=== PATIENT | male | born 1965 | race Caucasian/White ===

== ENCOUNTER 2021-12-23 18:11 | Inpatient (IN) | payer OTHER ==
[2021-12-23] MEDS ORDERED: DIPHTH,PERTUSS(ACELL),TET 0.5 ML DISP.SYRIN IM ONE ×2 (20:11→20:47)
[2021-12-23] MEDS ORDERED: VANCOMYCIN 1 GM in D5W (PRE-DOCKED) 1,000 MG/250 ML IVPB ONE (20:11)
[2021-12-23] MEDS ORDERED: PIPERACILLIN/TAZOB 4.5 GM 4.5 GM in DEXTROSE 5%-WATER 100 ML IVPB ONE (20:13)
[2021-12-23] MEDS ORDERED: PIPERACILLIN/TAZOB 4.5 GM 4.5 GM/100 ML BAG IVPB ONE (20:46)
[2021-12-23] MEDS ORDERED: VANCOMYCIN 1 GRAM (PRE-DOCKED) 1,000 MG/250 ML BAG IVPB ONE (20:46)
[2021-12-23 20:54] LABS: BASO % 0.5 % (0-2.0); EOS % 0.8 % (0-4.5); HEMOGLOBIN 10.9 GM/dL (11.7-16.9); LYMPH % 9.7 % (8-40); MCH 34.2 pg (25.7-33.7); MCHC 35.2 g/dl (32.0-35.9); MEAN CELL VOLUME 97.3 fl (80-96); MEAN PLT VOLUME 8.2 fl (7.5-11.1); PLATELET COUNT 193 10^3/uL (134-434); RBC 3.18 M/mm3 (4.00-5.60); RDW 13.6 % (11.9-15.9); WHITE BLOOD COUNT 8.1 K/mm3 (4.0-10.0)
[2021-12-23 21:08] LABS: ACTIVATED PTT 31.6 SECONDS (25.2-36.5); INR 1.07 (0.83-1.09); PROTHROMBIN TIME (PATIENT) 12.3 SEC (9.7-13.0)
[2021-12-23 21:17] LABS: CHLORIDE 92 mmol/L (98-107); SODIUM 130 mmol/L (136-145)
[2021-12-23 21:19] LABS: ALBUMIN 3.5 g/dl (3.4-5.0); CALCIUM 8.9 mg/dL (8.5-10.1)
[2021-12-23 21:20] LABS: ANION GAP 14 MMOL/L (8-16); BLOOD UREA NITROGEN 16.4 mg/dL (7-18); CO2 25 mmol/L (21-32); MAGNESIUM 2.8 mg/dL (1.8-2.4)
[2021-12-23] MEDS ORDERED: SODIUM CHLORIDE 0.9% 500 ML INFUS.BAG IV ONE (21:22)
[2021-12-23 21:23] LABS: CREATININE 1.1 mg/dL (0.55-1.3); SGOT/AST 15 U/L (15-37); SGPT/ALT 16 U/L (13-61)
[2021-12-23 21:24] LABS: BILIRUBIN,TOTAL 0.7 mg/dL (0.2-1); TOT PROT 7.3 g/dl (6.4-8.2)
[2021-12-23 21:26] LABS: ALK PHOS 141 U/L (45-117)
[2021-12-23 21:33] LABS: GLUCOSE,RANDOM 472 mg/dL (74-106)
[2021-12-23] MEDS ORDERED: INSULIN (NOVOLOG) ASPART 100 UNITS/ML 10ML VIAL SQ ONE (21:56)
[2021-12-24 03:53] VITALS: BMI 22.1
[2021-12-24 08:39] LABS: BASO % 0.4 % (0-2.0); EOS % 1.6 % (0-4.5); HEMATOCRIT 34.3 % (35.4-49); HEMOGLOBIN 11.8 GM/dL (11.7-16.9); LYMPH % 7.6 % (8-40); MCH 33.7 pg (25.7-33.7); MCHC 34.5 g/dl (32.0-35.9); MEAN CELL VOLUME 97.6 fl (80-96); MEAN PLT VOLUME 8.4 fl (7.5-11.1); MONO % 9.4 % (3.8-10.2); PLATELET COUNT 207 10^3/uL (134-434); RBC 3.51 M/mm3 (4.00-5.60); RDW 13.3 % (11.9-15.9); WHITE BLOOD COUNT 7.5 K/mm3 (4.0-10.0)
[2021-12-24 08:54] LABS: ALBUMIN 3.2 g/dl (3.4-5.0); CALCIUM 9.1 mg/dL (8.5-10.1)
[2021-12-24 08:55] LABS: BLOOD UREA NITROGEN 14.7 mg/dL (7-18)
[2021-12-24 08:57] LABS: CREATININE 0.8 mg/dL (0.55-1.3)
[2021-12-24 08:59] LABS: BILIRUBIN,TOTAL 0.7 mg/dL (0.2-1); TOT PROT 6.6 g/dl (6.4-8.2)
[2021-12-24] MEDS ORDERED: PIPERACILLIN/TAZOBACTAM 3.375 GM VIAL IVPB ONE (09:26)
[2021-12-24] MEDS ORDERED: DEXTROSE 5%-WATER - 50 ML IVPB ONE ×2 (09:26→12:37)
[2021-12-24] MEDS: ENOXAPARIN NA (PORCINE) 40 MG/0.4 ML DISP.SYRIN SQ SCH (09:31)
[2021-12-24] MEDS ORDERED: PIPERACILLIN/TAZOB 3.375 GM 3.375 GM in DEXTROSE 5%-WATER - 50 ML IVPB SCH (10:00)
[2021-12-24] MEDS ORDERED: VANCOMYCIN/WATER FOR INJ (PEG) 1 GM/200 ML BAG IVPB SCH ×2 (10:00→22:00)
[2021-12-24] MEDS: INSULIN SLIDING SCALE (NOVOLOG) 1 VIAL SQ SCH ×3 (12:12→21:08)
[2021-12-24] MEDS ORDERED: cefTRIAXone SODIUM 1 GM VIAL ONE (12:37)
[2021-12-24] MEDS: CEFTRIAXONE 1 GM in DEXTROSE 5%-WATER - 50 ML IVPB SCH (12:39)
[2021-12-24] MEDS ORDERED: SODIUM CHLORIDE 1,000 ML IV SCH (15:15)
[2021-12-25] MEDS: INSULIN SLIDING SCALE (NOVOLOG) 1 VIAL SQ SCH ×4 (06:24→21:17)
[2021-12-25] MEDS: INSULIN (LEVEMIR) 100 UNITS/ML UNITS SQ SCH ×2 (06:25→21:16)
[2021-12-25] MEDS ORDERED: INSULIN (NOVOLOG) ASPART 100 UNITS/ML 10ML VIAL ONE ×2 (06:42→20:46)
[2021-12-25] MEDS ORDERED: cefTRIAXone SODIUM 1 GM VIAL ONE (09:04)
[2021-12-25] MEDS ORDERED: DEXTROSE 5%-WATER - 50 ML IVPB ONE (09:04)
[2021-12-25] MEDS: ENOXAPARIN NA (PORCINE) 40 MG/0.4 ML DISP.SYRIN SQ SCH (09:23)
[2021-12-25] MEDS: CEFTRIAXONE 1 GM in DEXTROSE 5%-WATER - 50 ML IVPB SCH (09:23)
[2021-12-25 09:40] LABS: BASO % 0.8 % (0-2.0); EOS % 1.7 % (0-4.5); HEMATOCRIT 30.9 % (35.4-49); HEMOGLOBIN 10.8 GM/dL (11.7-16.9); LYMPH % 9.6 % (8-40); MCH 33.9 pg (25.7-33.7); MEAN CELL VOLUME 96.8 fl (80-96); MEAN PLT VOLUME 7.8 fl (7.5-11.1); MONO % 11.3 % (3.8-10.2); NEUT % 76.6 % (42.8-82.8); PLATELET COUNT 172 10^3/uL (134-434); RDW 13.6 % (11.9-15.9); WHITE BLOOD COUNT 6.1 K/mm3 (4.0-10.0)
[2021-12-25 10:02] LABS: CALCIUM 8.2 mg/dL (8.5-10.1)
[2021-12-25 10:03] LABS: ALBUMIN 2.6 g/dl (3.4-5.0); BLOOD UREA NITROGEN 13.7 mg/dL (7-18)
[2021-12-25 10:06] LABS: CREATININE 0.7 mg/dL (0.55-1.3)
[2021-12-25 10:08] LABS: BILIRUBIN,TOTAL 0.5 mg/dL (0.2-1); TOT PROT 5.2 g/dl (6.4-8.2)
[2021-12-25] MEDS: MUPIROCIN 2% TOPICAL OINTMENT 22 GM TUBE TP SCH ×2 (10:56→21:16)
[2021-12-25 19:08] LABS: URINE APPEARANCE CLEAR; URINE BILIRUBIN NEGATIVE (NEGATIVE); URINE COLOR YELLOW; URINE GLUCOSE (UA) 2+ (NEGATIVE); URINE KETONE TRACE (NEGATIVE); URINE LEUK ESTERASE NEGATIVE (NEGATIVE); URINE NITRITE NEGATIVE (NEGATIVE); URINE PROTEIN TRACE (NEGATIVE)
[2021-12-26] MEDS: INSULIN (LEVEMIR) 100 UNITS/ML UNITS SQ SCH ×2 (06:35→21:27)
[2021-12-26] MEDS: INSULIN SLIDING SCALE (NOVOLOG) 1 VIAL SQ SCH ×4 (06:36→21:28)
[2021-12-26] MEDS ORDERED: INSULIN (NOVOLOG) ASPART 100 UNITS/ML 10ML VIAL ONE ×3 (06:37→21:25)
[2021-12-26] MEDS ORDERED: cefTRIAXone SODIUM 1 GM VIAL ONE (09:18)
[2021-12-26] MEDS ORDERED: DEXTROSE 5%-WATER - 50 ML IVPB ONE (09:18)
[2021-12-26] MEDS: ENOXAPARIN NA (PORCINE) 40 MG/0.4 ML DISP.SYRIN SQ SCH (10:10)
[2021-12-26] MEDS: CEFTRIAXONE 1 GM in DEXTROSE 5%-WATER - 50 ML IVPB SCH (10:10)
[2021-12-26] MEDS: MUPIROCIN 2% TOPICAL OINTMENT 22 GM TUBE TP SCH ×2 (10:11→21:27)
[2021-12-26] MEDS: LISINOPRIL 5 MG TABLET PO SCH (15:12)
[2021-12-27] MEDS: INSULIN (LEVEMIR) 100 UNITS/ML UNITS SQ SCH (07:15)
[2021-12-27] MEDS: INSULIN SLIDING SCALE (NOVOLOG) 1 VIAL SQ SCH ×2 (07:16→11:20)
[2021-12-27 09:15] LABS: CALCIUM 9.1 mg/dL (8.5-10.1)
[2021-12-27 09:16] LABS: BLOOD UREA NITROGEN 15.8 mg/dL (7-18)
[2021-12-27 09:18] LABS: CREATININE 0.7 mg/dL (0.55-1.3)
[2021-12-27 09:20] LABS: BILIRUBIN,TOTAL 0.3 mg/dL (0.2-1); TOT PROT 6.2 g/dl (6.4-8.2)
[2021-12-27 09:27] LABS: ALBUMIN 3.2 g/dl (3.4-5.0)
[2021-12-27] MEDS ORDERED: DEXTROSE 5%-WATER - 50 ML IVPB ONE (09:56)
[2021-12-27] MEDS ORDERED: cefTRIAXone SODIUM 1 GM VIAL ONE (09:56)
[2021-12-27] MEDS: ENOXAPARIN NA (PORCINE) 40 MG/0.4 ML DISP.SYRIN SQ SCH (09:59)
[2021-12-27] MEDS: CEFTRIAXONE 1 GM in DEXTROSE 5%-WATER - 50 ML IVPB SCH (09:59)
[2021-12-27] MEDS: MUPIROCIN 2% TOPICAL OINTMENT 22 GM TUBE TP SCH (09:59)
[2021-12-27] MEDS: LISINOPRIL 5 MG TABLET PO SCH (09:59)
[2021-12-27] MEDS ORDERED: INSULIN (NOVOLOG) ASPART 100 UNITS/ML 10ML VIAL ONE (10:58)
[2021-12-27 14:19] VITALS: BP 150/90; PULSE 79; TEMP 98.6
[2021-12-27] MEDS ORDERED: AMOX TR/POT CLAV 500MG/125MG TABLETS (FP) PO SCH (17:30)
== END 2021-12-27 16:51 | disposition home or self-care (01) | DRG 383 ==
LOC: JER 18:11 → JERBED 21:32 → J6S 12-24 03:19
PROVIDERS: ADMIT Internal Medicine; ATTEND Internal Medicine
DX: L03.011 Cellulitis of right finger (principal); E87.5 Hyperkalemia; E11.65 Type 2 diabetes mellitus with hyperglycemia; E86.0 Dehydration; Z79.84 Long term (current) use of oral hypoglycemic drugs
CPT/HCPCS: 36415; 73130-TC-RT-FY; 80053; 81003; 82570; 82962; 83036; 83735; 84156; 85025; 85610; 85730; 87040; 90715; 93005; 93010; 99285-25; C9803-CS; U0003; U0005

== ENCOUNTER 2022-01-18 15:06 | Inpatient (IN) | payer OTHER ==
[2022-01-18] MEDS ORDERED: PIPERACILLIN/TAZOB 4.5 GM 4.5 GM in DEXTROSE 5%-WATER 100 ML IVPB ONE (20:14)
[2022-01-18] MEDS ORDERED: ACETAMINOPHEN 1000 MG/100 ML BAG IVPB ONE (20:14)
[2022-01-18] MEDS ORDERED: VANCOMYCIN/WATER 1,250 MG/250 ML BAG IVPB ONE (20:16)
[2022-01-18] MEDS ORDERED: VANCOMYCIN/WATER BAGS 1,250 MG/250 ML BAG IVPB ONE (20:42)
[2022-01-18] MEDS ORDERED: ACETAMINOPHEN INJECTION 100 ML IVPB ONE (20:42)
[2022-01-18] MEDS ORDERED: PIPERACILLIN/TAZOB 4.5 GM 4.5 GM/100 ML BAG IVPB ONE (20:42)
[2022-01-18 21:20] LABS: BASO % 1.3 % (0-2.0); HEMATOCRIT 30.5 % (35.4-49); HEMOGLOBIN 10.7 GM/dL (11.7-16.9); LYMPH % 21.4 % (8-40); MCH 33.2 pg (25.7-33.7); MCHC 35.1 g/dl (32.0-35.9); MEAN CELL VOLUME 94.5 fl (80-96); MEAN PLT VOLUME 8.9 fl (7.5-11.1); MONO % 11.5 % (3.8-10.2); NEUT % 61.8 % (42.8-82.8); PLATELET COUNT 150 10^3/uL (134-434); RBC 3.23 M/mm3 (4.00-5.60); RDW 12.9 % (11.9-15.9); WHITE BLOOD COUNT 3.4 K/mm3 (4.0-10.0)
[2022-01-18 21:48] LABS: ALBUMIN 3.5 g/dl (3.4-5.0); BLOOD UREA NITROGEN 15.5 mg/dL (7-18); CALCIUM 8.9 mg/dL (8.5-10.1)
[2022-01-18 21:51] LABS: CREATININE 0.8 mg/dL (0.55-1.3)
[2022-01-18 21:53] LABS: BILIRUBIN,TOTAL 0.4 mg/dL (0.2-1); TOT PROT 6.6 g/dl (6.4-8.2)
[2022-01-18 21:58] LABS: INR 1.03 (0.83-1.09); PROTHROMBIN TIME (PATIENT) 11.8 SEC (9.7-13.0)
[2022-01-18 22:00] LABS: ACTIVATED PTT 28.5 SECONDS (25.2-36.5)
[2022-01-18] MEDS ORDERED: LACTATED RINGERS SOLUTION 1000 ML INFUS.BAG IV ONE (22:03)
[2022-01-18] MEDS ORDERED: INSULIN REGULAR HUMAN 100 UNITS/ML *VIAL SQ ONE (22:03)
[2022-01-19] MEDS ORDERED: PIPERACILLIN/TAZOBACTAM 3.375 GM VIAL IVPB ONE ×3 (02:12→09:32)
[2022-01-19] MEDS ORDERED: DEXTROSE 5%-WATER - 50 ML IVPB ONE ×2 (02:12→09:32)
[2022-01-19] MEDS: PIPERACILLIN/TAZOB 3.375 GM 3.375 GM in DEXTROSE 5%-WATER - 50 ML IVPB SCH ×3 (02:30→21:17)
[2022-01-19 04:54] VITALS: BMI 23.9
[2022-01-19] MEDS: INSULIN SLIDING SCALE (NOVOLOG) 1 VIAL SQ SCH ×4 (06:06→21:41)
[2022-01-19] MEDS: ENOXAPARIN NA (PORCINE) 40 MG/0.4 ML DISP.SYRIN SQ SCH (09:38)
[2022-01-19] MEDS ORDERED: VANCOMYCIN 1 GM in D5W (PRE-DOCKED) 1,000 MG/250 ML IVPB SCH (10:00)
[2022-01-19] MEDS: VANCOMYCIN/WATER FOR INJ (PEG) 1,000 MG/200 ML BAG IVPB SCH ×2 (10:24→21:13)
[2022-01-19] MEDS ORDERED: PIPERACILLIN/TAZOBACTAM 4.5 GM VIAL IVPB ONE (16:06)
[2022-01-19] MEDS ORDERED: DEXTROSE 5%-WATER 100 ML IVPB ONE (16:07)
[2022-01-19] MEDS: PIPERACILLIN/TAZOB 4.5 GM 4.5 GM in DEXTROSE 5%-WATER 100 ML IVPB SCH (17:08)
[2022-01-20] MEDS ORDERED: PIPERACILLIN/TAZOBACTAM 4.5 GM VIAL IVPB ONE ×3 (01:01→17:26)
[2022-01-20] MEDS ORDERED: DEXTROSE 5%-WATER 100 ML IVPB ONE ×3 (01:01→17:26)
[2022-01-20] MEDS: PIPERACILLIN/TAZOB 4.5 GM 4.5 GM in DEXTROSE 5%-WATER 100 ML IVPB SCH ×3 (02:30→17:43)
[2022-01-20] MEDS: INSULIN SLIDING SCALE (NOVOLOG) 1 VIAL SQ SCH ×4 (06:03→21:50)
[2022-01-20 08:32] LABS: BASO % 1.6 % (0-2.0); EOS % 6.8 % (0-4.5); HEMATOCRIT 33.5 % (35.4-49); HEMOGLOBIN 11.5 GM/dL (11.7-16.9); LYMPH % 29.8 % (8-40); MCH 33.1 pg (25.7-33.7); MCHC 34.5 g/dl (32.0-35.9); MEAN PLT VOLUME 8.5 fl (7.5-11.1); MONO % 11.9 % (3.8-10.2); NEUT % 49.9 % (42.8-82.8); PLATELET COUNT 145 10^3/uL (134-434); RBC 3.48 M/mm3 (4.00-5.60); WHITE BLOOD COUNT 2.9 K/mm3 (4.0-10.0)
[2022-01-20 08:56] LABS: BLOOD UREA NITROGEN 10.3 mg/dL (7-18); CALCIUM 8.7 mg/dL (8.5-10.1); CREATININE 0.8 mg/dL (0.55-1.3)
[2022-01-20 08:58] LABS: BILIRUBIN,TOTAL 0.4 mg/dL (0.2-1); TOT PROT 6.2 g/dl (6.4-8.2)
[2022-01-20] MEDS: LISINOPRIL 5 MG TABLET PO SCH (10:04)
[2022-01-20] MEDS: ENOXAPARIN NA (PORCINE) 40 MG/0.4 ML DISP.SYRIN SQ SCH (10:04)
[2022-01-20] MEDS ORDERED: INSULIN SLIDING SCALE (NOVOLOG) 1 VIAL SQ SCH (22:32)
[2022-01-21] MEDS ORDERED: PIPERACILLIN/TAZOBACTAM 4.5 GM VIAL IVPB ONE ×3 (00:51→17:02)
[2022-01-21] MEDS ORDERED: DEXTROSE 5%-WATER 100 ML IVPB ONE ×3 (00:52→17:02)
[2022-01-21] MEDS: PIPERACILLIN/TAZOB 4.5 GM 4.5 GM in DEXTROSE 5%-WATER 100 ML IVPB SCH ×3 (01:22→17:04)
[2022-01-21] MEDS ORDERED: INSULIN (LEVEMIR) 100 UNITS/ML UNITS SQ SCH (10:00)
[2022-01-21] MEDS: LISINOPRIL 5 MG TABLET PO SCH (10:07)
[2022-01-21] MEDS: ENOXAPARIN NA (PORCINE) 40 MG/0.4 ML DISP.SYRIN SQ SCH (10:08)
[2022-01-21] MEDS ORDERED: INSULIN (LEVEMIR) 100 UNITS/ML UNITS SQ ONE (11:00)
[2022-01-21] MEDS: INSULIN SLIDING SCALE (NOVOLOG) 1 VIAL SQ SCH ×3 (11:16→21:52)
[2022-01-21] MEDS: GABAPENTIN 300 MG CAPSULE PO SCH ×2 (14:11→21:45)
[2022-01-21] MEDS: DOXYCYCLINE HYCLATE 100 MG CAPSULE PO SCH (18:12)
[2022-01-21] MEDS: INSULIN (LEVEMIR) 100 UNITS/ML UNITS SQ SCH (21:45)
[2022-01-22] MEDS: GABAPENTIN 300 MG CAPSULE PO SCH ×3 (05:35→22:16)
[2022-01-22] MEDS: INSULIN (LEVEMIR) 100 UNITS/ML UNITS SQ SCH ×2 (06:13→22:16)
[2022-01-22] MEDS: INSULIN SLIDING SCALE (NOVOLOG) 1 VIAL SQ SCH ×4 (06:13→22:16)
[2022-01-22] MEDS: ENOXAPARIN NA (PORCINE) 40 MG/0.4 ML DISP.SYRIN SQ SCH (10:05)
[2022-01-22] MEDS: LISINOPRIL 5 MG TABLET PO SCH (10:07)
[2022-01-22] MEDS: DOXYCYCLINE HYCLATE 100 MG CAPSULE PO SCH (10:07)
[2022-01-23] MEDS: INSULIN (LEVEMIR) 100 UNITS/ML UNITS SQ SCH (06:22)
[2022-01-23] MEDS: GABAPENTIN 300 MG CAPSULE PO SCH ×2 (06:22→13:08)
[2022-01-23] MEDS: INSULIN SLIDING SCALE (NOVOLOG) 1 VIAL SQ SCH ×2 (06:23→11:12)
[2022-01-23] MEDS ORDERED: PIPERACILLIN/TAZOB 4.5 GM 4.5 GM in DEXTROSE 5%-WATER 100 ML IVPB SCH (10:00)
[2022-01-23] MEDS ORDERED: PIPERACILLIN/TAZOBACTAM 4.5 GM VIAL IVPB ONE (11:08)
[2022-01-23] MEDS ORDERED: DEXTROSE 5%-WATER 100 ML IVPB ONE (11:08)
[2022-01-23] MEDS: LISINOPRIL 5 MG TABLET PO SCH (11:09)
[2022-01-23] MEDS: ENOXAPARIN NA (PORCINE) 40 MG/0.4 ML DISP.SYRIN SQ SCH (11:09)
[2022-01-23 11:49] VITALS: TEMP 98
[2022-01-23 14:59] VITALS: BP 141/79; PULSE 76
== END 2022-01-23 16:33 | disposition home or self-care (01) | DRG 344 ==
LOC: JER 15:06 → JERBED 20:33 → J5S 01-19 00:35
PROVIDERS: ADMIT Internal Medicine; ATTEND Internal Medicine
DX: E11.69 Type 2 diabetes mellitus with other specified complication (principal); L03.011 Cellulitis of right finger; M86.8X7 Other osteomyelitis, ankle and foot; E11.52 Type 2 diabetes mellitus with diabetic peripheral angiopathy with gangrene; I10 Essential (primary) hypertension; E87.5 Hyperkalemia; E11.65 Type 2 diabetes mellitus with hyperglycemia; E87.1 Hypo-osmolality and hyponatremia; R80.9 Proteinuria, unspecified; I96 Gangrene, not elsewhere classified
CPT/HCPCS: 36415; 73140-TC-RT-FY; 80053; 81003; 82962; 83036; 85025; 85610; 85651; 85730; 86140; 86850; 86900; 86901; 87040; 93005; 93010; 99285-25; C9803-CS; U0003; U0005

== ENCOUNTER 2022-11-16 18:43 | Emergency (ER) | payer OTHER ==
[2022-11-16 18:52] VITALS: BMI 22.6
[2022-11-16 20:41] LABS: URINE APPEARANCE CLEAR; URINE BILIRUBIN NEGATIVE (NEGATIVE); URINE COLOR YELLOW; URINE GLUCOSE (UA) 3+ (NEGATIVE); URINE KETONE TRACE (NEGATIVE); URINE LEUK ESTERASE 1+ (NEGATIVE); URINE NITRITE NEGATIVE (NEGATIVE); URINE PROTEIN 1+ (NEGATIVE)
[2022-11-16 20:58] LABS: VENOUS BASE EXCESS -2.8 mmol/L (-2-2); VENOUS PCO2 40.8 mmHg (38-52); VENOUS PH 7.358 (7.310-7.410)
[2022-11-16 21:00] LABS: BASO % 1.5 % (0-2.0); EOS % 6.1 % (0-4.5); HEMATOCRIT 36.9 % (35.4-49); LYMPH % 10.1 % (8-40); MCH 32.4 pg (25.7-33.7); MCHC 35.1 g/dl (32.0-35.9); MEAN CELL VOLUME 92.4 fl (80-96); MEAN PLT VOLUME 7.8 fl (7.5-11.1); MONO % 9.9 % (3.8-10.2); NEUT % 72.4 % (42.8-82.8); PLATELET COUNT 234 10^3/uL (134-434); WHITE BLOOD COUNT 5.9 K/mm3 (4.0-10.0)
[2022-11-16 21:14] LABS: CHLORIDE 95 mmol/L (98-107); SODIUM 126 mmol/L (136-145)
[2022-11-16 21:16] LABS: ALBUMIN 3.4 g/dl (3.4-5.0); ANION GAP 7 MMOL/L (8-16); CALCIUM 8.5 mg/dL (8.5-10.1); CO2 24 mmol/L (21-32)
[2022-11-16 21:17] LABS: BLOOD UREA NITROGEN 23.6 mg/dL (7-18)
[2022-11-16 21:19] LABS: SGPT/ALT 11 U/L (13-61)
[2022-11-16 21:20] LABS: CREATININE 1.2 mg/dL (0.55-1.3); SGOT/AST 12 U/L (15-37)
[2022-11-16 21:21] LABS: BILIRUBIN,TOTAL 0.7 mg/dL (0.2-1); TOT PROT 6.9 g/dl (6.4-8.2)
[2022-11-16 21:22] LABS: ALK PHOS 96 U/L (45-117)
[2022-11-16 21:24] LABS: GLUCOSE,RANDOM 463 mg/dL (74-106)
[2022-11-16] MEDS ORDERED: SODIUM CHLORIDE 0.9% 500 ML INFUS.BAG IV ONE (21:41)
[2022-11-16] MEDS ORDERED: INSULIN REGULAR HUMAN 100 UNITS/ML *VIAL IVPUSH ONE (21:41)
[2022-11-16] MEDS ORDERED: INSULIN REGULAR HUMAN 100 UNITS/ML *VIAL ONE (21:51)
[2022-11-16 22:10] LABS: EPI CELLS 19.5 /uL (0-25.1); HYALINE CASTS 0.4 /uL (0-3.1); URINE BACTERIA 60 /uL (0-1359); URINE RBC 9.1 /uL (0-23.9); URINE WBC 46 /uL (0-25.8)
[2022-11-17 01:54] VITALS: PULSE 68; RESP 20; TEMP 98.5
[2022-11-17 01:57] LABS: BLOOD UREA NITROGEN 20.5 mg/dL (7-18); CALCIUM 7.7 mg/dL (8.5-10.1); CREATININE 0.9 mg/dL (0.55-1.3)
[2022-11-17] MEDS ORDERED: GABAPENTIN 300 MG CAPSULE PO ONE (02:08)
[2022-11-17] MEDS ORDERED: metFORMIN HCL 500 MG TABLET (FP) PO ONE (02:08)
[2022-11-17] MEDS ORDERED: GABAPENTIN 300 MG CAPSULE ONE (02:13)
[2022-11-17] MEDS ORDERED: metFORMIN HCL 500 MG TABLET (FP) ONE (02:13)
[2022-11-17 02:31] VITALS: BP 105/66
== END 2022-11-17 02:35 | disposition home or self-care (01) ==
LOC: JER 18:43
PROC: 3E033GC Introduction of Other Therapeutic Substance into Peripheral Vein, Percutaneous Approach (ICD-10-PCS; principal; 2022-11-16)
DX: E11.65 Type 2 diabetes mellitus with hyperglycemia (principal)
CPT/HCPCS: 36415; 71046-TC-FY; 80048; 80053; 81003; 82803; 84484; 85025; 86850; 86900; 86901; 87077; 87086; 93005; 93010; 99285-25

== ENCOUNTER 2023-01-30 09:28 | Emergency (ER) | payer OTHER ==
[2023-01-30 09:33] VITALS: BMI 22.8
[2023-01-30] MEDS ORDERED: ACETAMINOPHEN 500 MG TABLET (FP) PO ONE (11:31)
[2023-01-30] MEDS ORDERED: ACETAMINOPHEN 325 MG TABLET (FP) ONE (11:34)
[2023-01-30 12:23] LABS: BASO % 1.2 % (0-2.0); EOS % 3.7 % (0-4.5); HEMATOCRIT 31.4 % (35.4-49); HEMOGLOBIN 11.6 GM/dL (11.7-16.9); LYMPH % 25.6 % (8-40); MCH 33.8 pg (25.7-33.7); MEAN CELL VOLUME 91.4 fl (80-96); MEAN PLT VOLUME 8.6 fl (7.5-11.1); MONO % 9.7 % (3.8-10.2); NEUT % 59.8 % (42.8-82.8); PLATELET COUNT 196 10^3/uL (134-434); RBC 3.43 M/mm3 (4.00-5.60); RDW 12.9 % (11.9-15.9); VENOUS BASE EXCESS 0.1 mmol/L (-2-2); VENOUS O2 SATURATION 94.3 % (70-80); VENOUS PCO2 40.4 mmHg (38-52); VENOUS PH 7.405 (7.310-7.410); WHITE BLOOD COUNT 4.7 K/mm3 (4.0-10.0)
[2023-01-30 12:30] LABS: INR 1.14 (0.83-1.09); PROTHROMBIN TIME (PATIENT) 13.2 SEC (9.7-13.0)
[2023-01-30 12:33] LABS: ACTIVATED PTT 33.5 SECONDS (25.2-36.5)
[2023-01-30 12:45] LABS: POTASSIUM 4.8 mmol/L (3.5-5.1)
[2023-01-30 12:47] LABS: ALBUMIN 3.5 g/dl (3.4-5.0)
[2023-01-30 12:48] LABS: MAGNESIUM 2.7 mg/dL (1.8-2.4)
[2023-01-30 12:51] LABS: CREATININE 0.9 mg/dL (0.55-1.3)
[2023-01-30 12:52] LABS: TOT PROT 6.7 g/dl (6.4-8.2)
[2023-01-30 14:39] VITALS: TEMP 98
[2023-01-30] MEDS ORDERED: chlorproMAZINE HCL 25 MG TABLET PO ONE (14:43)
[2023-01-30 15:14] VITALS: BP 141/84; PULSE 65; RESP 14
== END 2023-01-30 16:15 | disposition home or self-care (01) ==
LOC: JER 09:28
DX: M54.2 Cervicalgia (principal); M51.9 Unspecified thoracic, thoracolumbar and lumbosacral intervertebral disc disorder; M62.838 Other muscle spasm; Z20.822 Contact with and (suspected) exposure to COVID-19
CPT/HCPCS: 36415; 70470-TC; 80053; 82010; 82140; 82803; 83735; 85025; 85610; 85730; 99284-25; C9803-CS; Q9967; U0003; U0005

== ENCOUNTER 2024-04-02 14:13 | Observation (INO) | payer OTHER ==
[2024-04-02 15:53] LABS: BASO % 1.4 % (0-2.0); EOS % 4.6 % (0-4.5); HEMATOCRIT 27.5 % (35.4-49); HEMOGLOBIN 9.6 GM/dL (11.7-16.9); LYMPH % 25.4 % (8-40); MCH 31.5 pg (25.7-33.7); MCHC 34.7 g/dl (32.0-35.9); MEAN CELL VOLUME 90.8 fl (80-96); MEAN PLT VOLUME 8.8 fl (7.5-11.1); NEUT % 59.6 % (42.8-82.8); PLATELET COUNT 146 10^3/uL (134-434); RBC 3.03 M/mm3 (4.00-5.60); RDW 12.5 % (11.9-15.9); WHITE BLOOD COUNT 3.6 K/mm3 (4.0-10.0)
[2024-04-02] MEDS: SODIUM CHLORIDE 1,000 ML IV STA ×2 (15:53→19:15)
[2024-04-02 15:56] LABS: VENOUS BASE EXCESS -6.6 mmol/L (-2-2); VENOUS O2 SATURATION 73.9 % (70-80); VENOUS PCO2 37.8 mmHg (38-52); VENOUS PH 7.317 (7.310-7.410)
[2024-04-02 16:11] LABS: CHLORIDE 103 mmol/L (98-107); POTASSIUM 5.8 mmol/L (3.5-5.1); SODIUM 134 mmol/L (136-145)
[2024-04-02 16:13] LABS: CALCIUM 8.3 mg/dL (8.5-10.1); GLUCOSE,RANDOM 399 mg/dL (74-106)
[2024-04-02 16:15] LABS: ALBUMIN 3.5 g/dl (3.4-5.0); ANION GAP 10 mmol/L (4-13); CO2 21 mmol/L (21-32)
[2024-04-02 16:17] LABS: CREATININE 1.5 mg/dL (0.55-1.3); SGOT/AST 19 U/L (15-37); SGPT/ALT 25 U/L (13-61)
[2024-04-02 16:19] LABS: BILIRUBIN,TOTAL 0.4 mg/dL (0.2-1); TOT PROT 6.3 g/dl (6.4-8.2)
[2024-04-02 16:20] LABS: ALK PHOS 79 U/L (45-117)
[2024-04-02 17:08] LABS: HIV INTERPRETATION NEGATIVE (NEGATIVE)
[2024-04-02] MEDS ORDERED: CALCIUM GLUC IN NACL, ISO-OSM 1 GM/50 ML BAG IVPB ONE (19:03)
[2024-04-02] MEDS ORDERED: GABAPENTIN 300 MG CAPSULE ONE (19:03)
[2024-04-02] MEDS: CALCIUM GLUCONATE 10% - 1,000 MG/10 ML VIAL IVPB ONE (19:15)
[2024-04-02] MEDS: GABAPENTIN 300 MG CAPSULE PO ONE (19:15)
[2024-04-02] MEDS ORDERED: SODIUM ZIRCONIUM CYCLOSILICATE (LOKELMA) 5 GM PACKET ONE (19:22)
[2024-04-02] MEDS: SODIUM ZIRCONIUM CYCLOSILICATE (LOKELMA) 5 GM PACKET PO ONE (19:29)
[2024-04-02] MEDS ORDERED: INSULIN REGULAR HUMAN 100 UNITS/ML *VIAL ONE (20:27)
[2024-04-02] MEDS ORDERED: ACETAMINOPHEN 325 MG TABLET (FP) PO PRN (20:33)
[2024-04-02] MEDS: INSULIN REGULAR HUMAN 100 UNITS/ML *VIAL IVPUSH ONE (20:37)
[2024-04-02 21:23] LABS: IRON SERUM 67 ug/dL (50-175); TOTAL IRON BINDING CAPACITY 195 ug/dL (250-450)
[2024-04-02] MEDS: INSULIN ASPART SLIDING SCALE (NOVOLOG) 1 VIAL SQ SCH (21:59)
[2024-04-02] MEDS: SODIUM CHLORIDE 1,000 ML IV SCH (21:59)
[2024-04-02] MEDS ORDERED: INSULIN ASPART SLIDING SCALE (NOVOLOG) 1 VIAL SQ ONE (22:01)
[2024-04-03] MEDS ORDERED: GABAPENTIN 300 MG CAPSULE ONE (04:51)
[2024-04-03] MEDS: GABAPENTIN 300 MG CAPSULE PO ONE (04:52)
[2024-04-03 06:34] LABS: BASO % 1.4 % (0-2.0); EOS % 4.3 % (0-4.5); HEMATOCRIT 27.8 % (35.4-49); HEMOGLOBIN 9.8 GM/dL (11.7-16.9); LYMPH % 28.2 % (8-40); MCHC 35.3 g/dl (32.0-35.9); MEAN CELL VOLUME 90.7 fl (80-96); MEAN PLT VOLUME 8.4 fl (7.5-11.1); MONO % 8.6 % (3.8-10.2); NEUT % 57.5 % (42.8-82.8); PLATELET COUNT 148 10^3/uL (134-434); RBC 3.07 M/mm3 (4.00-5.60); RDW 12.5 % (11.9-15.9); WHITE BLOOD COUNT 4.3 K/mm3 (4.0-10.0)
[2024-04-03 06:38] LABS: INR 1.1 (0.83-1.09); PROTHROMBIN TIME (PATIENT) 12.4 SEC (9.7-13.0)
[2024-04-03 06:41] LABS: ACTIVATED PTT 34.3 SECONDS (25.2-36.5)
[2024-04-03 08:16] LABS: BLOOD UREA NITROGEN 31.9 mg/dL (7-18); CREATININE 0.8 mg/dL (0.55-1.3); MAGNESIUM 2.6 mg/dL (1.8-2.4); POTASSIUM 5.1 mmol/L (3.5-5.1)
[2024-04-03] MEDS ORDERED: INSULIN ASPART SLIDING SCALE (NOVOLOG) 1 VIAL SQ ONE (11:48)
[2024-04-03] MEDS: GABAPENTIN 300 MG CAPSULE PO SCH (14:28)
[2024-04-03 15:26] VITALS: BMI 22.0
[2024-04-03] MEDS: SODIUM CHLORIDE 0.45% 1,000 ML IV SCH (16:34)
[2024-04-03] MEDS ORDERED: SODIUM ZIRCONIUM CYCLOSILICATE (LOKELMA) 5 GM PACKET PO ONE (16:38)
[2024-04-03] MEDS: HEPARIN NA (PORCINE) 5,000 UNITS/ML 1ML VIAL SQ SCH (21:33)
[2024-04-03] MEDS: hydrALAZINE HCL 10 MG TABLET PO ONE (21:42)
[2024-04-03] MEDS ORDERED: GABAPENTIN 300 MG CAPSULE PO SCH (23:13)
[2024-04-04] MEDS: hydrALAZINE HCL 10 MG TABLET PO ONE (07:02)
[2024-04-04] MEDS: INSULIN (LEVEMIR) 100 UNITS/ML UNITS SQ SCH (08:00)
[2024-04-04] MEDS: LISINOPRIL 5 MG TABLET PO SCH (10:15)
[2024-04-04 10:49] LABS: BASO % 1.9 % (0-2.0); EOS % 3.8 % (0-4.5); HEMATOCRIT 26.1 % (35.4-49); LYMPH % 30.6 % (8-40); MCH 31.3 pg (25.7-33.7); MCHC 34.6 g/dl (32.0-35.9); MEAN CELL VOLUME 90.5 fl (80-96); MEAN PLT VOLUME 8.8 fl (7.5-11.1); MONO % 9.4 % (3.8-10.2); NEUT % 54.3 % (42.8-82.8); PLATELET COUNT 141 10^3/uL (134-434); RBC 2.88 M/mm3 (4.00-5.60); RDW 12.6 % (11.9-15.9); WHITE BLOOD COUNT 3.8 K/mm3 (4.0-10.0)
[2024-04-04 11:24] LABS: ALBUMIN 3.1 g/dl (3.4-5.0); ALK PHOS 70 U/L (45-117); BILIRUBIN,TOTAL 0.4 mg/dL (0.2-1); BLOOD UREA NITROGEN 26.6 mg/dL (7-18); CALCIUM 8.6 mg/dL (8.5-10.1); CHLORIDE 109 mmol/L (98-107); CO2 20 mmol/L (21-32); GLUCOSE,RANDOM 313 mg/dL (74-106); POTASSIUM 5.3 mmol/L (3.5-5.1); SGOT/AST 37 U/L (15-37); SGPT/ALT 35 U/L (13-61); SODIUM 135 mmol/L (136-145); TOT PROT 5.7 g/dl (6.4-8.2)
[2024-04-04] MEDS: SODIUM ZIRCONIUM CYCLOSILICATE (LOKELMA) 5 GM PACKET PO SCH (12:57)
[2024-04-04] MEDS: DOCUSATE SODIUM 100 MG CAPSULE (FP) PO PRN (17:13)
[2024-04-05] MEDS: INSULIN ASPART SLIDING SCALE (NOVOLOG) 1 VIAL SQ SCH (06:05)
[2024-04-05] MEDS: INSULIN (LEVEMIR) 100 UNITS/ML UNITS SQ SCH (06:07)
[2024-04-05 06:35] VITALS: RESP 18
[2024-04-05 09:32] LABS: BASO % 1.2 % (0-2.0); EOS % 4.5 % (0-4.5); HEMATOCRIT 25.8 % (35.4-49); HEMOGLOBIN 9.1 GM/dL (11.7-16.9); LYMPH % 33.6 % (8-40); MCH 32.1 pg (25.7-33.7); MCHC 35.2 g/dl (32.0-35.9); MEAN CELL VOLUME 91.1 fl (80-96); MEAN PLT VOLUME 8.8 fl (7.5-11.1); MONO % 9.2 % (3.8-10.2); NEUT % 51.5 % (42.8-82.8); PLATELET COUNT 135 10^3/uL (134-434); RBC 2.83 M/mm3 (4.00-5.60); RDW 12.5 % (11.9-15.9); WHITE BLOOD COUNT 3.8 K/mm3 (4.0-10.0)
[2024-04-05 09:58] LABS: CALCIUM 8.7 mg/dL (8.5-10.1)
[2024-04-05 09:59] LABS: ALBUMIN 3.2 g/dl (3.4-5.0); BLOOD UREA NITROGEN 26.9 mg/dL (7-18)
[2024-04-05 10:02] LABS: CREATININE 0.9 mg/dL (0.55-1.3)
[2024-04-05 10:03] LABS: BILIRUBIN,TOTAL 0.4 mg/dL (0.2-1); TOT PROT 5.8 g/dl (6.4-8.2)
[2024-04-05 18:41] VITALS: BP 102/90; PULSE 78; TEMP 97.7
[2024-04-05] MEDS ORDERED: INSULIN (LEVEMIR) 100 UNITS/ML UNITS SQ SCH (22:00)
[2024-04-10 08:10] LABS: IG A QN SERUM. 211 mg/dL (90-386)
== END 2024-04-05 18:54 | disposition home or self-care (01) ==
LOC: JER 14:13 → JERBED 18:41 → J5S 04-03 14:16
PROVIDERS: ADMIT Internal Medicine; ATTEND Family Medicine
PROC: 3E033GC Introduction of Other Therapeutic Substance into Peripheral Vein, Percutaneous Approach (ICD-10-PCS; principal; 2024-04-02)
PROC: 3E023GC Introduction of Other Therapeutic Substance into Muscle, Percutaneous Approach (ICD-10-PCS; 2024-04-02)
PROC: 3E013VG Introduction of Insulin into Subcutaneous Tissue, Percutaneous Approach (ICD-10-PCS; 2024-04-02)
PROC: 3E013VG Introduction of Insulin into Subcutaneous Tissue, Percutaneous Approach (ICD-10-PCS; 2024-04-02)
DX: E11.65 Type 2 diabetes mellitus with hyperglycemia (principal); E11.40 Type 2 diabetes mellitus with diabetic neuropathy, unspecified; R29.6 Repeated falls; I10 Essential (primary) hypertension; M19.90 Unspecified osteoarthritis, unspecified site; L03.011 Cellulitis of right finger; D64.9 Anemia, unspecified; R53.1 Weakness; F10.21 Alcohol dependence, in remission; E87.1 Hypo-osmolality and hyponatremia; E87.5 Hyperkalemia; E83.51 Hypocalcemia; K80.20 Calculus of gallbladder without cholecystitis without obstruction; K57.90 Diverticulosis of intestine, part unspecified, without perforation or abscess without bleeding
CPT/HCPCS: 36415; 70450-TC; 71046-TC-FY; 72125-TC; 73564-TC-LT-FY; 74176-TC; 80048; 80053; 82010; 82272; 82607; 82728; 82746; 82784; 82803; 82962; 83036; 83540; 83550; 83735; 84100; 84155; 84165; 84439; 84443; 84484; 85025; 85610; 85730; 86140; 86334; 86803; 86850; 86900; 86901; 87045; 87046; 87205; 87389; 93005; 93010; 93306-TC; 96361; 96372; 96374; 96375; 97116-GP; 97161-GP; 99285-25; G0378; J1644

== ENCOUNTER 2024-04-18 12:26 | Emergency (ER) | payer OTHER ==
[2024-04-18] MEDS ORDERED: SODIUM BICARBONATE 8.4% 50 MEQ/50 ML DISP.SYRIN ONE ×2 (12:43→13:09)
[2024-04-18] MEDS ORDERED: CALCIUM CHLORIDE 1 GM/10 ML *DISP.SYRIN ONE ×2 (12:46)
[2024-04-18] MEDS ORDERED: NOREPINEPHRINE BITARTRATE 4 MG/4 ML ML IV ONE (12:52)
[2024-04-18 13:09] LABS: HEMATOCRIT 22.4 % (35.4-49); HEMOGLOBIN 7.3 GM/dL (11.7-16.9); MCH 31.6 pg (25.7-33.7); MCHC 32.7 g/dl (32.0-35.9); MEAN CELL VOLUME 96.6 fl (80-96); MEAN PLT VOLUME 9.8 fl (7.5-11.1); PLATELET COUNT 156 10^3/uL (134-434); RBC 2.32 M/mm3 (4.00-5.60); RDW 13.7 % (11.9-15.9)
[2024-04-18 13:16] LABS: INR 1.19 (0.83-1.09); PROTHROMBIN TIME (PATIENT) 13.6 SEC (9.7-13.0)
[2024-04-18 13:18] LABS: ACTIVATED PTT 30.9 SECONDS (25.2-36.5)
[2024-04-18 13:20] LABS: CHLORIDE 109 mmol/L (98-107); SODIUM 135 mmol/L (136-145)
[2024-04-18 13:22] LABS: CALCIUM 9.1 mg/dL (8.5-10.1)
[2024-04-18 13:23] LABS: ALBUMIN 2.8 g/dl (3.4-5.0); BLOOD UREA NITROGEN 44.3 mg/dL (7-18); CO2 17 mmol/L (21-32); GLUCOSE,RANDOM 185 mg/dL (74-106)
[2024-04-18 13:25] LABS: ANION GAP 9 mmol/L (4-13); POTASSIUM 6.2 mmol/L (3.5-5.1); SGPT/ALT 43 U/L (13-61)
[2024-04-18 13:26] LABS: CREATININE 1.4 mg/dL (0.55-1.3); SGOT/AST 24 U/L (15-37)
[2024-04-18 13:27] LABS: BILIRUBIN,TOTAL 0.2 mg/dL (0.2-1); TOT PROT 5.1 g/dl (6.4-8.2)
[2024-04-18 13:29] LABS: ALK PHOS 96 U/L (45-117)
[2024-04-18 13:33] LABS: LACTIC ACID 4.8 mmol/L (0.4-2.0)
[2024-04-18 13:38] VITALS: BP 0/0; BMI 25.9
[2024-04-18 15:36] VITALS: RESP 12
== END 2024-04-18 14:00 | disposition expired ==
LOC: JER 12:26
PROC: 0BH17EZ Insertion of Endotracheal Airway into Trachea, Via Natural or Artificial Opening (ICD-10-PCS; principal; 2024-04-18)
PROC: 5A12012 Performance of Cardiac Output, Single, Manual (ICD-10-PCS; 2024-04-18)
DX: I46.9 Cardiac arrest, cause unspecified (principal); R55 Syncope and collapse
CPT/HCPCS: 36415; 80053; 80307; 82550; 82553; 82962; 83605; 85027; 85610; 85730; 86850; 86900; 86901; 99291